=== PATIENT | male | born 1950 ===

== ENCOUNTER → 2022-06-14 14:23 | Outpatient (CLI) | payer BC, MEDICARE, SELFPAY ==
--- NOTE | ~2022-06-14 | MR_ITS ---
EXAMINATION: MR knee LT wo con DATE: 06/14/2022 15:15 INDICATION: Acute pain of left knee. TECHNIQUE: Magnetic resonance imaging (MRI) of the left knee was performed without intravenous contra st. Sequences included axial PD-weighted FS FSE, coronal PD-weighted FSE and PD-weighted FS FSE, sagi ttal PD-weighted FSE, and sagittal T2-weighted FS FSE. COMPARISON: None. FINDINGS: Medial compartment: Increased signal in medial meniscus does not extend to an articular surface to indicate a tear. There is cartilage surface irregularity of tibial condyle and femoral condyle. Lateral compartment: Lateral meniscus is normal. There is a small area of deep partial thickness cartilage loss of tibial condyle involving the posterior articular surface. Femoral cartilage is normal. Patellofemoral compartment: There is shallow partial-thickness cartilage loss of patellar medial facet, median ridge, and lateral facet. There is cartilage surface irregularity of trochlea. Ligaments and tendons: The anterior and posterior cruciate ligaments are normal. Medial collateral ligament is normal. There is a tear of the medial retinaculum. There are changes of prior sprain of fibular collateral ligamen t characterized by thickening and increased signal intensity proximally. There is mild patellar tendi nopathy. Fluid: There is a small knee joint effusion. There is subcutaneous edema about the knee. There is moderate p repatellar and superficial infrapatellar bursitis. Osseous/other: There is edema-like marrow signal intensity involving the medial pole of patella and lateral aspect o f lateral femoral condyle, consistent with contusions from patellar dislocation-relocation. IMPRESSION: 1. Patellar dislocation-relocation injury. 2. Moderate chondrosis of lateral compartment and mild chondrosis of medial and patellofemoral compar tments. 3. Small knee joint effusion. Reviewed, dictated and finalized at location A. IMPRESSION: 1. Patellar dislocation-relocation injury. 2. Moderate chondrosis of lateral compartment and mild chondrosis of medial and patellofemoral compartments. 3. Small knee joint effusion.
== END ==
PROVIDERS: PCP Internal Medicine; Visit Provider Physician Assistant
DX: M25.562 Pain in left knee (principal); M25.462 Effusion, left knee
CPT/HCPCS: 73721